=== PATIENT | male | born 1930 | race Two or more races ===

== ENCOUNTER 2020-10-21 14:48 | Emergency (ER) | payer MEDICARE, MEDICAID ==
[~2020-10-21] VITALS: Ht 170.2 cm; Wt 76.2 kg
[2020-10-21 14:58] VITALS: BP 119/62
--- NOTE | 2020-10-21 15:08 | NUR ---
ED Nurse Note: Patient from home and referred by Dr Randolph due to rectal bleeding. Pt denies any pain or vomiting. AAO x4, ambulates with steady gait with non labored breathing.
[2020-10-21] MEDS ORDERED: Omnipaque-300 100ml vial INJ PRN (15:30)
--- NOTE | 2020-10-21 15:42 | Emergency Room Report ---
History of Present Illness General Chief Complaint: General Complaint Source: Patient, PMD Present Illness HPI Patient presents after being referred by his private doctor Dr. Peter Ni for evaluation of a rectal mass. Apparently he always has constipation. On Tuesday he has quite a bit of blood per rectum that was bright red. He also had pain there. The bleeding has stopped at this time. He is not sure how much blood was lost. He denies nausea or vomiting. He denies weight loss. He was referred to be admitted to Dr. Randolph if indicated. The patient had colonoscopy 5 years ago. This was apparently normal. The patient does report some chronic mid right-sided upper back pain. The patient denies exposure to Covid positive contacts. No fevers, chills, sore throat, chest pain, palpitations, nausea, vomiting, diarrhea, dysuria, abdominal pain, shortness of breath, rashes, depression, anxiety, visual changes, dizziness, headache. 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 COVID-19 Screening: PUI COVID-19 COVID-19 Testing Source: nasal Patient History Past Medical History: see triage record Social History: Denies: smoking Social History Narrative brought by daughter, Reviewed Nursing Documentation: PMH: Agreed; PSxH: Agreed Review of Systems All Other Systems: negative except mentioned in HPI Physical Exam Vital Signs Date Time Temp Pulse Resp B/P (MAP) Pulse Ox O2 Delivery O2 Flow Rate FiO2 10/21/20 14:58 97.2 66 17 119/62 (81) 98 Room Air Sp02 EP Interpretation: reviewed, normal General Appearance: well appearing, no apparent distress, GCS 15 Head: normocephalic Eyes: bilateral eye normal inspection, bilateral eye PERRL, bilateral eye EOMI ENT: moist mucus membranes Neck: supple Respiratory: lungs clear, normal breath sounds Cardiovascular #1: regular rate, rhythm Cardiovascular #2: 2+ radial (R) Gastrointestinal: normal inspection, normal bowel sounds, non tender, no mass, non-distended Rectal: hemorrhoids, prostate non-tender - Prostate is enlarged significantly, other - Scant amount of dark blood Musculoskeletal: back normal - With reported pain, normal range of motion, gait/station normal Neurologic: alert, oriented x3, grossly normal Psychiatric: mood/affect normal Skin: no rash, warm/dry Medical Decision Making Diagnostic Impression: Primary Impression: Rectal bleeding Additional Impressions: Acute hemorrhoid Enlarged prostate on rectal examination Renal insufficiency ER Course Patient presents with history of rectal bleeding and mass. Differential incl udes hemorrhoids, cancer, diverticulosis amongst others. Patient evaluated with labs and CT of the abdomen with oral and IV contrast. Patient declines pain medication at this time. Labs with normal white count. Mild anemia. CMP with renal insufficiency and low potassium. Urinalysis clear. CT exam as below. Of note the patient has no right upper quadrant abdominal tenderness. Discussed results with patient and daughter. The rectal mass is clearly an enlarged prostate. The rectal bleeding seems related to internal hemorrhoids. There are no other masses felt on rectal exam aside from the enlarged prostate. Discussed treatment plan with patient and daughter. Discussed the need for follow-up with a urologist and his primary physician. Calls were made to his primary doctor. He was discussed with Dr. Randolph. Patient stable for outpatient observation and treatment. Laboratory Tests Test 10/21/20 15:45 White Blood Count 8.0 K/UL (4.8-10.8) Red Blood Count 3.87 M/UL (4.70-6.10) L Hemoglobin 11.7 G/DL (14.2-18.0) L Hematocrit 35.8 % (42.0-52.0) L Mean Corpuscular Volume 92 FL (80-99) Mean Corpuscular Hemoglobin 30.1 PG (27.0-31.0) Mean Corpuscular Hemoglobin Concent 32.6 G/DL (32.0-36.0) Red Cell Distribution Width 13.0 % (11.6-14.8) Platelet Count 293 K/UL (150-450) Mean Platelet Volume 6.2 FL (6.5-10.1) L Neutrophils (%) (Auto) 55.3 % (45.0-75.0) Lymphocytes (%) (Auto) 31.0 % (20.0-45.0) Monocytes (%) (Auto) 10.4 % (1.0-10.0) H Eosinophils (%) (Auto) 1.8 % (0.0-3.0) Basophils (%) (Auto) 1.4 % (0.0-2.0) Prothrombin Time 11.1 SEC (9.30-11.50) Prothrombin Time INR 1.0 (0.9-1.1) Activated Partial Thromboplast Time 29 SEC (23-33) Urine Color Pale yellow Urine Appearance Clear Urine pH 6 (4.5-8.0) Urine Specific [place] 1.005 (1.005-1.035) Urine Protein Negative (NEGATIVE) Urine Glucose (UA) Negative (NEGATIVE) Urine Ketones Negative (NEGATIVE) Urine Blood Negative (NEGATIVE) Urine Nitrite Negative (NEGATIVE) Urine Bilirubin Negative (NEGATIVE) Urine Urobilinogen Normal MG/DL (0.0-1.0) Urine Leukocyte Esterase Negative (NEGATIVE) Sodium Level 140 MMOL/L (136-145) Potassium Level 3.1 MMOL/L (3.5-5.1) L Chloride Level 104 MMOL/L (98-107) Carbon Dioxide Level 28 MMOL/L (21-32) Anion Gap 8 mmol/L (5-15) Blood Urea Nitrogen 26 mg/dL (7-18) H Creatinine 1.6 MG/DL (0.55-1.30) H Estimated Glomerular Filtration Rate 41.0 mL/min (>60) Glucose Level 101 MG/DL (74-106) Calcium Level 8.8 MG/DL (8.5-10.1) Total Bilirubin 0.3 MG/DL (0.2-1.0) Aspartate Amino Transferase (AST) 19 U/L (15-37) Alanine Aminotransferase (ALT) 21 U/L (12-78) Alkaline Phosphatase 57 U/L (46-116) Total Protein 7.4 G/DL (6.4-8.2) Albumin 3.5 G/DL (3.4-5.0) Globulin 3.9 g/dL Albumin/Globulin Ratio 0.9 (1.0-2.7) L Lipase 155 U/L (73-393) CT/MRI/US Diagnostic Results CT/MRI/US Diagnostic Results : Imaging Test Ordered: Abdomen and pelvis Impression 1. No mass definitively identified, although no clinical description where the mass may be was provided. 2. Possible acute cholecystitis with gallbladder wall thickening, distention, and gallstones. Correlate with presentation. 3. Colonic diverticulosis without acute diverticulitis. 4. Atrophic pancreas. 5. Prostatomegaly. Last Vital Signs Date Time Temp Pulse Resp B/P (MAP) Pulse Ox O2 Delivery O2 Flow Rate FiO2 10/21/20 19:15 98.1 82 17 125/75 99 Room Air Status: improved Disposition: HOME, SELF-CARE Condition: Stable Scripts Lactulose (LACTULOSE*) 20 Gm/30 Ml Solution 30 ML ORAL BID PRN for Constipation, #240 ML 0 Refills Prov: Gavin Fan MD 10/21/20 Acetaminophen (Tylenol) 325 Mg Tablet 650 MG ORAL Q6H PRN for Prn Pain/Headache/Temp > 101, #20 TAB 0 Refills Prov: Gavin Fan MD 10/21/20 Hydrocortisone Acetate* (ANUSOL-HC*) 25 Mg Supp.rect 1 SUPP RECTAL TWICE A DAY, #14 SUPP Prov: Gavin Fan MD 10/21/20 Gavin Fan MD Oct 21, 2020 15:42
--- NOTE | 2020-10-21 15:46 | NUR ---
ED Nurse Note: Collected blood and urine then sent.
[2020-10-21 16:12] LABS: BASOPHILS % (AUTO) 1.4 % (0.0-2.0); EOSINOPHILS % (AUTO) 1.8 % (0.0-3.0); HEMATOCRIT 35.8 % (42.0-52.0); HEMOGLOBIN 11.7 G/DL (14.2-18.0); MEAN CORPUSCULAR VOLUME 92 FL (80-99); MONOCYTES % (AUTO) 10.4 % (1.0-10.0); NEUTROPHILS % (AUTO) 55.3 % (45.0-75.0); PLATELET COUNT 293 K/UL (150-450); RED BLOOD COUNT 3.87 M/UL (4.70-6.10)
[2020-10-21 16:14] LABS: APPEARANCE,URINE CLEAR; BILIRUBIN, URINE NEGATIVE (NEGATIVE); COLOR,URINE PALE YELLOW; GLUCOSE, URINE (UA) NEGATIVE (NEGATIVE); KETONES,URINE NEGATIVE (NEGATIVE); LEUKOCYTE ESTERASE ,URINE NEGATIVE (NEGATIVE); NITRITE,URINE NEGATIVE (NEGATIVE); PH,URINE 6 (4.5-8.0); PROTEIN,URINE NEGATIVE (NEGATIVE); UROBILINOGEN,URINE NORMAL MG/DL (0.0-1.0)
[2020-10-21 16:24] LABS: CALCIUM 8.8 MG/DL (8.5-10.1); CREATININE 1.6 MG/DL (0.55-1.30); POTASSIUM 3.1 MMOL/L (3.5-5.1)
[2020-10-21 16:28] LABS: ALBUMIN 3.5 G/DL (3.4-5.0); ALBUMIN/GLOBULIN RATIO 0.9 (1.0-2.7); BILIRUBIN,TOTAL 0.3 MG/DL (0.2-1.0)
[2020-10-21 17:10] VITALS: BP 125/76
--- NOTE | 2020-10-21 17:19 | NUR ---
ED Nurse Note: Called CT and spoke to sonya to ff up with procedure.
--- NOTE | 2020-10-21 17:41 | NUR ---
ED Nurse Note: Called CT and spoke to sonya to ff up with procedure.
--- NOTE | 2020-10-21 18:25 | Diagnostic Imaging Report ---
EXAM: CT Abdomen and Pelvis With Intravenous Contrast CLINICAL HISTORY: MASS TECHNIQUE: Axial computed tomography images of the abdomen and pelvis with intravenous contrast. CTDI is 6.4 mGy and DLP is 319.7 mGy-cm. One or more of the following dose reduction techniques were used: automated exposure control, adjustment of the mA and/or kV according to patient size, use of iterative reconstruction technique. Coronal and sagittal reformatted images were created and reviewed. COMPARISON: No relevant prior studies available. FINDINGS: Lung bases: Unremarkable. No mass. No consolidation. ABDOMEN: Liver: Multiple benign hepatic cysts and likely benign hepatic sub- centimeters hypodensities probably representing cysts, largest 6 cm in the central portion of the liver. No further follow-up acquired. Gallbladder and bile ducts: Possible acute cholecystitis with gallbladder wall thickening, distention, and gallstones. Correlate with presentation. No ductal dilation. Pancreas: Atrophic pancreas. No ductal dilation. Spleen: Unremarkable. No splenomegaly. Adrenals: Unremarkable. No mass. Kidneys and ureters: Numerous bilateral benign renal cyst requiring no additional old, largest 4.2 cm on the left. Stomach and bowel: Colonic diverticulosis without acute diverticulitis. No obstruction. PELVIS: Appendix: No findings to suggest acute appendicitis. Bladder: Unremarkable. No mass. Reproductive: Prostate 5.9 cm transverse. ABDOMEN and PELVIS: Intraperitoneal space: Unremarkable. No free air. No significant fluid collection. Bones/joints: Multilevel age-related degenerative spine findings and osteopenia. No acute fracture. No dislocation. Soft tissues: Unremarkable. Vasculature: Unremarkable. No abdominal aortic aneurysm. Lymph nodes: Unremarkable. No enlarged lymph nodes. Other findings: No mass definitively identified, although no clinical description where the mass may be was provided. IMPRESSION: 1. No mass definitively identified, although no clinical description where the mass may be was provided. 2. Possible acute cholecystitis with gallbladder wall thickening, distention, and gallstones. Correlate with presentation. 3. Colonic diverticulosis without acute diverticulitis. 4. Atrophic pancreas. 5. Prostatomegaly.
--- NOTE | 2020-10-21 18:28 | NUR ---
ED Nurse Note: Patient keeps walking and wants his IV to be removed. WILLIAM explained to patient that we need CT results back first before he gets discharged.
--- NOTE | 2020-10-21 18:55 | NUR ---
ED Nurse Note: Dr Fan at the bed side.
[2020-10-21 19:00] VITALS: BP 127/80
[2020-10-21] MEDS ORDERED: ANUSOL-HC25 MG RECTAL (19:03)
[2020-10-21] MEDS ORDERED: TYLENOL325 MG ORAL (19:03)
[2020-10-21] MEDS ORDERED: LACTULOSE20 GM/301 ORAL (19:05)
--- NOTE | 2020-10-21 19:07 | NUR ---
HAND-OFF: Report given to Regina REY.
[2020-10-21 19:15] VITALS: BP 125/75
--- NOTE | 2020-10-21 19:15 | NUR ---
ER DISCHARGE NOTE: Patient is cleared to be discharged per ERMD, pt is aox4, on room air, with stable vital signs. pt was given dc and prescription instructions translated by daughter, pt and daughter was able to verbalize understanding, pt id band and iv site removed intact without complications. pt is able to ambulate with steady gait. pt took all belongings. pt stable upon discharge accompanied by daughter.
== END 2020-10-21 19:15 | disposition home or self-care (01) ==
LOC: EMR 15:42
DX: N40.0 Benign prostatic hyperplasia without lower urinary tract symptoms (principal); K64.9 Unspecified hemorrhoids; K62.5 Hemorrhage of anus and rectum; N28.9 Disorder of kidney and ureter, unspecified; Z88.6 Allergy status to analgesic agent
CPT/HCPCS: 36415; 74177; 80053; 81003; 83690; 85025; 85610; 85730; 99284; Q9965